=== PATIENT | female | born 1965 | race Two or more races ===

== ENCOUNTER → 2016-07-01 | Outpatient (CLI) | payer OTHER | END | disposition home or self-care (01) | LOC: CFH 06:56 | PROVIDERS: ATTEND Family Medicine | DX: N64.89 Other specified disorders of breast (principal); R92.2 Inconclusive mammogram | CPT/HCPCS: 76641; G0206 ==

== ENCOUNTER → 2018-07-07 | Outpatient (CLI) | payer BC | END | disposition home or self-care (01) | LOC: CFH 09:14 | PROVIDERS: ATTEND Family Medicine | DX: R05 Cough (principal) | CPT/HCPCS: 71046 ==

== ENCOUNTER 2018-10-11 07:57 | Outpatient (CLI) | payer BC | END 2018-10-11 23:59 | disposition home or self-care (01) | LOC: CFH 07:57 | PROVIDERS: ATTEND Family Medicine | DX: Z12.31 Encounter for screening mammogram for malignant neoplasm of breast (principal); J32.0 Chronic maxillary sinusitis; J34.2 Deviated nasal septum; K76.89 Other specified diseases of liver | CPT/HCPCS: 70486; 76700; 77063; 77067 ==